=== PATIENT | female | born 1955 | race Caucasian/White ===

== ENCOUNTER → 2018-01-04 14:36 | Outpatient (CLI) | payer OTHER, BC, SELFPAY ==
--- NOTE | 2018-01-04 14:47 | CT_ITS ---
STUDY: CT LEFT KNEE WITHOUT CONTRAST REASON FOR EXAM: Female, 62 years old. Osteoarthritis RADIATION DOSAGE (If Supplied By Facility): CTDIvol = ( 37.55 ) mGy, DLP = ( 1787.11 ) mGycm TECHNIQUE: Transaxial CT imaging of the knee was performed. Coronal and sagittal images were reformatted. COMPARISON: None. FINDINGS: Moderate to severe medial compartment osteoarthritis with small associated femoral and tibial osteophytes. The lateral compartment is intact. Mild patellofemoral osteoarthritis. No fractures or erosive lesions are seen. Multiple subcutaneous varices. No fluid collections are seen. CT/Extremity Lower without Contra IMPRESSION: Moderate to severe medial compartment osteoarthritis. Mild patellofemoral osteoarthritis. Electronically Signed: Vic Jacobs MD at 4:43 EDT Tel , Service support ,
== END ==
PROVIDERS: Visit Provider Orthopaedic Surgery
DX: M17.12 Unilateral primary osteoarthritis, left knee (principal)
CPT/HCPCS: 73700